=== PATIENT | female | born 1980 | race Caucasian/White ===

== ENCOUNTER 2017-01-12 10:18 | Emergency (ER) | payer BC, MEDICAID ==
[2017-01-12 10:55] VITALS: BP 126/83
[2017-01-12] MEDS ORDERED: Acetaminophen TAB* 325 MG PO ONE (11:10)
--- NOTE | 2017-01-12 12:02 | RAD ---
INDICATION: Tender distal radius post fall on outstretched hand. COMPARISON: None. TECHNIQUE: AP, lateral, and oblique views LEFT elbow. REPORT AND IMPRESSION: Displaced anterior fat pad consistent with joint effusion. Minimally impacted fracture at the radial head neck junction. No appreciable radial head articular surface discontinuity or incongruity. No additional fracture evident. Normal articular alignment. Unremarkable soft tissue contours.
--- NOTE | 2017-01-12 12:03 | RAD ---
Indication: " Tailbone" pain after a fall on the ice Comparison: None. Technique: AP and lateral views sacrum and coccyx. Report: The visualized bones of the sacrum and coccyx are well-corticated and properly aligned. The joint spaces are adequately maintained. There is no radiographically apparent acute fracture or dislocation. IMPRESSION: Normal radiograph of the sacrum and coccyx. If the patient's symptoms persist, follow-up imaging is recommended.
--- NOTE | 2017-01-12 12:03 | RAD ---
INDICATION: Left wrist injury. TECHNIQUE: 3 views of the left wrist were obtained. FINDINGS: The bones are in normal alignment. No fracture is seen. Joint spaces appear maintained. IMPRESSION: NO EVIDENCE FOR FRACTURE, IF THE PATIENT'S SYMPTOMS PERSIST, RECOMMEND FOLLOW-UP IMAGING.
--- NOTE | 2017-01-12 12:57 | UC ---
russell Frazier Timothy, scribed for Arleen Treviño DO on 01/12/17 at 1107 . Upper Extremity HPI - HPI Summary HPI Summary: Brandie Talavera is a 36 yo female presenting to [facility] with 7/10 shooting left pain in her left arm and 8/10 sharp pain in the wrist, and 6/10 dull pain in her tailbone, radiating throughout her body when she moves. There is some numbness in her left fingers tips, like hitting a funny bone. She was taking her child out of the car when she slipped and landed on her tailbone and braced herself with her left arm. Sh has a 6 month old and a 2 year old. She states she does not feel the pain as much when not moving. She denies any other Sx. Her Hx includes anxiety. She is currently breast feeding. - History of Current Complaint Stated Complaint: WRIST TAILBONE INJURY Time Seen by Provider: 01/12/17 11:02 Hx Obtained From: Patient Hx Last Menstrual Period: no LMP available ?: No Onset/Duration: Sudden Onset, Lasting Minutes, Still Present Severity Initially: Moderate Severity Currently: Moderate Pain Intensity: 8 Pain Scale Used: 0-10 Numeric Location Of Pain: Is Discrete @ - left wrist and tailbone, Radiates To - left elbow Character: Sharp, Dull Aggravating Factor(s): Movement Alleviating Factor(s): Rest Associated Signs And Symptoms: Positive: Numbness/Tingling - left finger tips. Negative: Swelling, Redness, Bruising, Fever, Weakness - Risk Factors Non-Orthopedic Risk Factor: Negative - Allergies/Home Medications Allergies/Adverse Reactions: Allergies Allergy/AdvReac Type Severity Reaction Status Date / Time No Known Allergies Allergy Verified 01/12/17 10:55 Home Medications: Home Medications NK [No Home Medications Reported] 01/12/17 [History Confirmed 01/12/17] PMH/Surg Hx/FS Hx/Imm Hx Psychological History Of: Reports: Anxiety - Surgical History Surgical History: None - Family History Known Family History: Positive: Diabetes Negative: Cardiac Disease, Hypertension - Social History Lives: With Family Alcohol Use: None Substance Use Type: None Smoking Status (MU): Never Smoked Tobacco Have You Smoked in the Last Year: No - Immunization History Most Recent Influenza Vaccination: unk Most Recent Tetanus Shot: 05/08/16 Most Recent Pneumonia Vaccination: none Review of Systems Constitutional: Negative Skin: Negative Eyes: Negative ENT: Negative Respiratory: Negative Cardiovascular: Negative Gastrointestinal: Negative Genitourinary: Negative Motor: Negative Neurovascular: Negative Musculoskeletal: Other: - pain in tailbone, left wrist, and left elbow/arm Neurological: Numbness - in left finger tips 3,4,5 Psychological: Negative All Other Systems Reviewed And Are Negative: Yes Physical Exam Triage Information Reviewed: Yes Appearance: Well-Appearing, No Pain Distress, Well-Nourished Vital Signs: Initial Vital Signs Temp 98.7 F 01/12/17 10:50 Pulse 88 01/12/17 10:50 Resp 20 01/12/17 10:50 BP 126/83 01/12/17 10:50 Pulse Ox 99 01/12/17 10:50 Vital Signs Reviewed: Yes Eyes: Positive: Conjunctiva Clear. Negative: Discharge ENT: Positive: Normal ENT inspection, Hearing grossly normal. Negative: Muffled /hoarse voice Neck: Positive: Supple, Nontender Respiratory: Positive: Lungs clear, Normal breath sounds, No respiratory distress, No accessory muscle use Cardiovascular: Positive: RRR, No Murmur Musculoskeletal: Positive: Strength Intact, ROM Intact, Other: - tenderness over sacrum and coccyx, no other midline tenderness. Tender lateral condyle and radial head and shaft. Tender distal radius in the wrist, no snuffbox tenderness. Dital neurovascularly intact. Neurological Exam: Other - A&Ox3, CN II-XII INTACT, SENSORY MOTOR INTACT, REFLEXES INTACT, NO CEREBELLAR SIGNS, FACIAL SYMMETRY, NEGATIVE RHOMBERG, NEGATIVE GAIT, NEGATIVE KERNIGS & BRUDINSKIS Neurological: Positive: Alert, Muscle Tone Normal Psychological Exam: Normal Psychological: Positive: Age Appropriate Behavior Skin Exam: Normal Diagnostics - Radiology L Elbow XR Xray Interpretation: Positive (See Comments) - REPORT AND IMPRESSION: Displaced anterior fat pad consistent with joint effusion. Minimally impacted fracture at the radial head neck junction. No appreciable radial head articular surface discontinuity or incongruity. No additional fracture evident. Normal articular alignment. Unremarkable soft tissue contours. Radiology Interpretation Completed By: Radiologist Sacrum and Coccyx Xray Interpretation: No Acute Changes - IMPRESSION: Normal radiograph of the sacrum and coccyx. Radiology Interpretation Completed By: Radiologist L wrist XR Xray Interpretation: No Acute Changes - IMPRESSION: NO EVIDENCE FOR FRACTURE, IF THE PATIENT'S SYMPTOMS PERSIST, RECOMMEND FOLLOW-UP IMAGING. Radiology Interpretation Completed By: Radiologist Re-Evaluation - Re-Evaluation First Eval Re-Evaluation Time: 12:34 Change: Unchanged Comment: Pt was informed of XR results and given instructions regarding pain management. Upper Extremity Course/Dx - Course Course Of Treatment: Brandie Talavera is a 36 yo female presenting to [facility] with left wrist and elbow pain, as well as tailbone pain S/P a fall in which she landed on her tailbone and caught herself with her left arm. After review of her imaging studies showing a minimally impacted fracture at the radial head neck junction, she will be discharged home with instructions regarding her fracture. - Differential Dx/Diagnosis Differential Diagnosis/HQI/PQRI: Contusion, Fracture (Closed), Strain, Sprain Provider Diagnoses: Minimally impacted fracture at the radial head neck junction of the left arm. coccyx injury. wrist sprain. - Physician Notification/Consults Discussed Patient Care With: Eloisa Hernandez (pharmacist) - discussed Pt condition and medications best suited for pain management given that she is breast feeding her 6 month old child. Discharge - Discharge Plan Condition: Stable Disposition: HOME Patient Education Materials: Coccyx Injury (ED), Elbow Fracture in Adults (ED) , How to Use a Sling (GEN), Wrist Sprain (ED) Referrals: [facility] [Outside] - If Needed Karon Guo MD [Medical Doctor] - (FOLLOW UP IN 2-5 DAYS OR PER ORTHO.) Additional Instructions: Please follow up with your primary care physician regarding your visit to urgent care today. Return to urgent care or the emergency department with any new or recurring symptoms. The documentation as recorded by the russell penny Timothy accurately reflects the service I personally performed and the decisions made by , Arleen Treviño DO.
== END 2017-01-12 13:03 | disposition home or self-care (01) ==
LOC: UCEAST 10:18
DX: S52.122A Displaced fracture of head of left radius, initial encounter for closed fracture (principal); S63.502A Unspecified sprain of left wrist, initial encounter; S39.92XA Unspecified injury of lower back, initial encounter; W01.0XXA Fall on same level from slipping, tripping and stumbling without subsequent striking against object, initial encounter; Y93.89 Activity, other specified; Y92.9 Unspecified place or not applicable; Z32.02 Encounter for pregnancy test, result negative
CPT/HCPCS: 72220; 81025; 99212; A9270-GY; G0463

== ENCOUNTER 2019-03-25 11:52 | Inpatient (IN) | payer OTHER ==
[2019-03-25] MEDS ORDERED: Lactated Ringers 1000 ML Bag* 1,000 ML IV ONE ×2 (12:42→19:24)
[2019-03-25] MEDS ORDERED: Buffered Lidocaine 1% SYRIN* 1 ML/SYRINGE INTRADERM ONE (12:42)
--- NOTE | 2019-03-25 12:52 | HP ---
General Information - Reason for Visit Pt is a 38yo at 38+0 wks with a di/di twin gestation, only complicated by AMA. ultrasounds and NSTs have been reassuring to date. No complaints today other than a lot of discomfort from advanced gestation. - General Information Maternal Age: 38 Grav: 4 Para: 3 SAB: 0 IEA: 0 Estimated Due Date: 04/08/19 Determined By: LMP Maternal Blood Type and Rh: O Positive - Results this Serology/RPR Result: Non-Reactive Rubella Result: Immune HBsAg Result: Negative HIV Result: Negative GBS Culture Result: Negative Past Medical History Delivery History: Hx Uncomplicated Vaginal Delivery - x3 Pertinent Past Medical History: See Records - anxiety Pertinent Past Surgical History: See Records - toe surgery - Antepartal Records Antepartal Records: Reviewed, Complicated by: - di/di twins, AMA Review of Systems Constitutional: Comfortable CV Complaint: No Respiratory: Shortness of Breath: No Gastrointestinal: No Nausea/Vomiting Genitourinary: No Dysuria, No Bleeding, No Leaking Fluid Musculoskeletal: No Complaint Neurological: No Headache, No Visual Changes Movement: Normal - x2 Exam Allergies/Adverse Reactions: Allergies No Known Allergies Allergy (Verified 03/25/19 14:26) 145/96, 136/102, 136/97 P110, T97.9 - Measurements Height: 5 ft 9 in Weight: 178 lb Body Mass Index (BMI): 26.2 Pre- Weight: 140 lb - Exam Breast: Breast Exam Deferred CVA: No CVA Tenderness Heart: Normal Rhythm/Heart Sounds HEENT: No Significant Findings Lungs: Clear Bilaterally Rectal: Rectal Exam Deferred - Abdominal Exam Abdomen Exam: Non-Tender, Fundal Height Consistent with Dates - for twins - Ultrasound/Biophysical Profile Ultrasound Status: Bedside Exam - vertex/vertex. Baby A on maternal left Targeted Exam Findings Estimated Weight: 7 lbs x2 Cervical Exam: 4cm Effacement: 80% Station: -1 Presenting Part: Vertex - but fingers palpable next to the head Membrane Status: Intact Bleeding/Discharge: None EFM Findings - External Monitor Findings Baseline Heart Rate: 130 - and 135 External Monitor Findings: Accelerations Present - x2, No Pattern of Variable or Late Decelerations, Variability Moderate, Baseline Stable Contractions: Irregular, Mild Assessment/Plan - Assessment 38 wks with uncomplicated di/di twins here for induction. Very reassuring status x2. Although Baby A's head is well-applied, fingers were palpable next to the head. Pt will try some maneuvers to try to help the baby move a little. Once hand has moved, plan AROM and then pitocin as needed. Pt has some mildly elevated BPs today, so will check labs. No signs of pre- eclampsia at this point. - Obstetrical Risk Factors Obstetrical Risk Factors: Gestational Hypertension - Plan Plan: Induction, Admit - Anticipate Vaginal Delivery - Date/Time of Admission Date of Admission: 03/25/19 Time of Admission: 13:00
[2019-03-25] MEDS ORDERED: Lactated Ringers 1000 ML Bag* 1,000 ML IV SCH ×3 (13:00→23:00)
[2019-03-25] MEDS ORDERED: Oxytocin in LR* 20 UNITS/1,000 ML BAG IVPB SCH ×2 (13:00→23:00)
[2019-03-25 13:49] LABS: ABS Basophils 0.1 10^3/ul (0-0.2); ABS Eosinophils 0.1 10^3/ul (0-0.6); ABS Lymphocytes 1.9 10^3/ul (1.0-4.8); ABS Monocytes 0.8 10^3/ul (0-0.8); ABS Neutrophils 6.2 10^3/ul (1.5-7.7); ABS Nucleated RBC 0 10^3/ul; Eosinophil % 0.6 %; Hematocrit 33 % (33-41); Lymphocyte % 20.7 %; Mean Corpuscular HGB Conc 33 g/dL (31-36); Mean Corpuscular Hemoglobin 26 pg (27-31); Mean Corpuscular Volume 80 fL (80-97); Mean Platelet Volume 9.1 fL (7.4-10.4); Nucleated Red Blood Cells % 0.1; Platelet Count 210 10^3/uL (150-450); Red Blood Count 4.17 10^6 /uL (3.70-4.87); Red Cell Distribution Width 15 % (10.5-15)
[2019-03-25 14:16] LABS: Albumin 3.5 g/dL (3.2-5.2); Albumin/Globulin Ratio 1.1 (1-3); BUN/Creatinine Ratio 12.5 (8-20); EGFR African American 97.7 (>60); EGFR Non-African American 80.7 (>60); Globulin 3.3 g/dL (2-4); Potassium 4.1 mmol/L (3.5-5.0); Total Bilirubin 0.3 mg/dL (0.2-1.0); Total Protein 6.8 g/dL (6.4-8.9); Uric Acid 6.5 mg/dL (2.3-6.6)
[2019-03-25] MEDS ORDERED: OBEPIDURAL* 250 ML EPIDURAL ONE (18:41)
[2019-03-25] MEDS ORDERED: Famotidine TAB* 20 MG PO PRN (19:24)
[2019-03-25] MEDS ORDERED: Phenylephrine 40 MCG/ML SYRINGE IV PUSH PRN (19:24)
[2019-03-25] MEDS ORDERED: Sodium Citrate/Citric Acid* 15 ML UDC PO PRN (19:24)
[2019-03-25] MEDS ORDERED: OBEPIDURAL* 250 ML EPIDURAL SCH (20:00)
[2019-03-25] MEDS ORDERED: Witch Hazel PAD* JAR TOPICAL PRN (22:29)
[2019-03-25] MEDS ORDERED: Dibucaine 1% 28.35 GM TUBE PR PRN (22:29)
--- NOTE | 2019-03-25 22:36 | PROCNOTE ---
[facility] OB: Delivery Note - Delivery A Date of : 03/25/19 Time of : 21:54 [place] Sex: Female Weight at : 6 lb 7 oz Score 1 Minute: 8 Score 5 Minutes: 9 Gestational Age in Weeks and Days at Delivery: 38 Weeks and 0 Days Delivery Method: Spontaneous Vaginal Labor: Induced Amniotic Fluid: Clear Estimated Blood Loss: 200 Anesthesia/Analgesia: CEI for Labor Delivered By: Kimani Balderas B Date of : 03/25/19 Time of : 22:04 Sex: Male [place] Weight at : 7 lb Score 1 Minute: 9 Score 5 Minutes: 9 Gestational Age in Weeks and Days at Delivery: 38 Weeks and 0 Days Delivery Method: Spontaneous Vaginal Labor: Induced Anesthesia/Analgesia: CEI for Labor Delivered By: Kimani Balderas - Nursery Level of Nursery: Regular/Bedside - Perineum Perineal Injury: None/Intact Perineal Repair: None - Additional Delivery Notes Additional Delivery Notes: Pt presented for induction at 38 wks with di/di twins, otherwise uncomplicated . AROM performed. After a couple hrs, pitocin was started. At only 2mU, she was actively car within an hour. After an additional couple hrs, she received an epidural which worked well. She progressed quickly to C/C/0 and we moved to the OR. Pt pushed twice to deliver the first infant OA without difficulty. Infant vigorous, placed on her abdomen. Cord doubly clamped and cut. U/S confirmed vtx presentation of baby B. Once head came down a little, AROM performed with copious clear fluid. U/S noted FHR in 60s. She pushed with two contractions to deliver the head. Compound arm present during delivery. Shoulders and body followed easily. cried quickly. Cord doubly clamped and cut. IV pitocin started. Cord blood collected x2. Both placentas delivered spontaneously and together. Noted to be intact. Fundus very firm, minimal bleeding. No lacerations present.
[2019-03-25] MEDS: Ibuprofen TAB* 600 MG PO PRN (23:29)
[2019-03-26] MEDS: Ibuprofen TAB* 600 MG PO PRN ×3 (06:15→20:04)
[2019-03-26 07:03] LABS: ABS Basophils 0.1 10^3/ul (0-0.2); ABS Eosinophils 0.1 10^3/ul (0-0.6); ABS Lymphocytes 2.4 10^3/ul (1.0-4.8); ABS Neutrophils 8.4 10^3/ul (1.5-7.7); ABS Nucleated RBC 0 10^3/ul; Eosinophil % 0.5 %; Hematocrit 29 % (33-41); Hemoglobin 9.6 g/dL (12.0-16.0); Mean Corpuscular HGB Conc 33 g/dL (31-36); Mean Corpuscular Hemoglobin 27 pg (27-31); Mean Corpuscular Volume 80 fL (80-97); Mean Platelet Volume 8.6 fL (7.4-10.4); Nucleated Red Blood Cells % 0.1; Platelet Count 163 10^3/uL (150-450); Red Blood Count 3.62 10^6 /uL (3.70-4.87); Red Cell Distribution Width 15 % (10.5-15)
[2019-03-26] MEDS ORDERED: Simethicone TAB* 80 MG TAB.CHEW PO SCH (08:30)
[2019-03-26] MEDS: Docusate CAP* 100 MG PO SCH ×3 (08:49→20:04)
[2019-03-26] MEDS: Ferrous Gluconate TAB* 324 MG TAB PO SCH ×2 (11:10→20:16)
[2019-03-26] MEDS: Acetaminophen TAB* 325 MG PO PRN ×2 (11:45→20:04)
[2019-03-27] MEDS: Acetaminophen TAB* 325 MG PO PRN ×3 (00:08→09:02)
[2019-03-27] MEDS: Ibuprofen TAB* 600 MG PO PRN ×2 (04:01→09:01)
[2019-03-27 08:37] VITALS: BP 129/81
[2019-03-27] MEDS ORDERED: Prenatal Vitamin TAB PO SCH (09:00)
[2019-03-27] MEDS ORDERED: Lactobacillus Acidophilus* 1 TAB PO SCH (09:00)
[2019-03-27] MEDS: Docusate CAP* 100 MG PO SCH (09:02)
== END 2019-03-27 13:18 | disposition home or self-care (01) | DRG 807 ==
LOC: MCHOBOUT 11:52 → MCHOB 12:44
PROVIDERS: ADMIT Obstetrics & Gynecology; ATTEND Obstetrics & Gynecology
PROC: 10E0XZZ Delivery of Products of Conception, External Approach (ICD-10-PCS; principal; 2019-03-25)
PROC: 3E033VJ Introduction of Other Hormone into Peripheral Vein, Percutaneous Approach (ICD-10-PCS; 2019-03-25)
PROC: 10907ZC Drainage of Amniotic Fluid, Therapeutic from Products of Conception, Via Natural or Artificial Opening (ICD-10-PCS; 2019-03-25)
DX: O13.4 Gestational [pregnancy-induced] hypertension without significant proteinuria, complicating childbirth (principal); Z37.2 Twins, both liveborn; O99.344 Other mental disorders complicating childbirth; F41.9 Anxiety disorder, unspecified; O90.81 Anemia of the puerperium; D64.9 Anemia, unspecified; Z3A.38 38 weeks gestation of pregnancy
CPT/HCPCS: 36415; 80053; 84550; 85025; 86850; 86900; 86901; A9270-GY

== ENCOUNTER 2019-03-30 19:12 | Observation (INO) | payer OTHER ==
--- NOTE | 2019-03-30 19:37 | ED ---
Headache - HPI Summary HPI Summary: Pt is a 38 y/o female who presents to the ED c/o headache. She delivered twins vaginally on 03/25/19 without complications. Pt was given an epidural. 3 days ago she began to have a headache, located in her posterior head and neck. Pain is rated a 9/10 in severity, and is made worse with lying flat. She reports intermittent blurry vision and black spots in her vision. Pt also notes an episode of feeling cold and shaking while breast feeding. She denies any LE edema. She has been taking Tylenol and Motrin for her symptoms. BP while in triage: 165/101. She denies any hx of HTN. - History Of Current Complaint Chief Complaint: EDHeadache Stated Complaint: TEST BLOOD PRESSURE PER PT Hx Obtained From: Patient Hx Last Menstrual Period: no LMP available Onset/Duration: Gradual Onset, Started days ago - 3, Still Present Currently Pain Is: Severe - 9/10 Timing: Constant Location of Headache: Other: - posterior head and neck Aggravating Factor: Position Change - lying flat Associated Signs And Symptoms: Visual Changes - blurry vision - Allergies/Home Medications Allergies/Adverse Reactions: Allergies Allergy/AdvReac Type Severity Reaction Status Date / Time No Known Allergies Allergy Verified 03/25/19 14:26 PMH/Surg Hx/FS Hx/Imm Hx Cardiovascular History: Denies: Hx Hypertension Musculoskeletal History: Reports: Other Musculoskeletal History - wrist sprain Psychiatric History: Reports: Hx Anxiety Infectious Disease History: No Infectious Disease History: Denies: Traveled Outside the [place] in Last 30 Days - Family History Known Family History: Positive: Diabetes Negative: Cardiac Disease, Hypertension - Social History Alcohol Use: None Hx Substance Use: No Substance Use Type: Reports: None Hx Tobacco Use: No Smoking Status (MU): Never Smoked Tobacco Have You Smoked in the Last Year: No Review of Systems Positive: Other - cold and shaky Positive: Blurred Vision, Other - black spots in vision Negative: Edema - LE Positive: Headache - posterior head and neck All Other Systems Reviewed And Are Negative: Yes Physical Exam - Summary Physical Exam Summary: Appearance: well appearing, mild pain distress, tearful Skin: warm, dry, reflects adequate perfusion Head/face: normal Eyes: EOMI, CARLOS ENT: mucous membranes moist Neck: supple, moderate tenderness of musculature Respiratory: CTA, breath sounds present Cardiovascular: tachycardic but regular rhythm, pulses symmetrical Abdomen: non-tender, soft, uterus firm Bowel Sounds: present Musculoskeletal: normal, strength/ROM intact Neuro: normal, sensory motor intact, A&Ox3 Triage Information Reviewed: Yes Vital Signs On Initial Exam: Initial Vitals Temp Pulse Resp BP Pulse Ox 98.8 F 110 20 165/101 97 03/30/19 19:29 03/30/19 19:29 03/30/19 19:29 03/30/19 19:29 03/30/19 19:29 Vital Signs Reviewed: Yes Procedures - Procedure Summary Procedure Summary: Trigger Point Injection: done for pain, patient laid supine, cervical musculature cleaned with alcohol, musculature was injected with a total of 10 cc 0.25% Bupivacaine with Epinephrine in divided aliquots which was then massaged through the tissue, pain relief excellent, ROM restored, procedure tolerated well without complications. Diagnostics - Vital Signs Vital Signs Temp Pulse Resp BP Pulse Ox 03/30/19 19:29 98.8 F 110 20 165/101 97 - Laboratory Result Diagrams: 03/30/19 19:13 03/30/19 19:13 Lab Statement: Any lab studies that have been ordered have been reviewed, and results considered in the medical decision making process. Re-Evaluation - Re-Evaluation First Eval Re-Evaluation Time: 19:48 Change: Unchanged Comment: BP is now 175/105. Second Eval Re-Evaluation Time: 20:38 Change: Improved Comment: Pt feels much better after the injections. Headache Course/Dx - Course Course Of Treatment: Patient is immediately with blood pressures approaching 180 systolic and 120 diastolic. She has posterior headache and neck pain. There is muscular tenderness there and the neck is well. She was started on labetalol and IV magnesium. A trigger point injection was performed of the neck which greatly reduced her discomfort. The divisional storekeeper [employer] was paged and accepted the patient for admission to labor and delivery for management of preeclampsia. Thus far her LFTs, platelets are normal. Pending urinalysis. - Diagnoses Differential Diagnosis/HQI/PQRI: Meningitis, Migraine, Other - Eclampsia, preeclampsia Provider Diagnoses: Pre-eclampsia, , Headache, Neck pain - Physician Notifications Discussed Care Of Patient With: Tena Mendes Time Discussed With Above Provider: 19:43 Instructed by Provider To: Other - She will come to the ED. At 20:44 she accepts pt for admission and wants the pt sent down to OB. - Critical Care Time Critical Care Time: 30-74 min - CCT is EXCLUSIVE of separately billable procedures. Discharge - Sign-Out/Discharge Documenting (check all that apply): Patient Departure - Admit Patient Received Moderate/Deep Sedation with Procedure: No - Discharge Plan Condition: Guarded Disposition: ADMITTED TO [facility] - Billing Disposition and Condition Condition: GUARDED Disposition: Admitted to [facility] - Attestation Statements Document Initiated by Scribe: Yes Documenting Scribe: Rossana Engle Provider For Whom Scribe is Documenting (Include Credential): Wilfredo Vanegas MD Scribe Attestation: Rossana Frazier, scribed for Wilfredo Vanegas MD on 03/31/19 at 0621. Scribe Documentation Reviewed: Yes Provider Attestation: The documentation as recorded by the Rossana penny accurately reflects the service I personally performed and the decisions made by , Wilfredo Vanegas MD Status of Scribe Document: Viewed
[2019-03-30] MEDS ORDERED: Bupivacaine 0.25% SDV* 30 ML INJ ONE (19:41)
[2019-03-30] MEDS ORDERED: Labetalol IV* 5 MG/ML 20 ML VIAL IV PUSH ONE ×2 (19:41→21:54)
[2019-03-30 20:03] LABS: ABS Basophils 0.1 10^3/ul (0-0.2); ABS Eosinophils 0.2 10^3/ul (0-0.6); ABS Lymphocytes 1.8 10^3/ul (1.0-4.8); ABS Monocytes 0.7 10^3/ul (0-0.8); ABS Neutrophils 7.1 10^3/ul (1.5-7.7); ABS Nucleated RBC 0 10^3/ul; Eosinophil % 2.4 %; Hematocrit 35 % (35-47); Hemoglobin 11.6 g/dL (12.0-16.0); Lymphocyte % 18.3 %; Mean Corpuscular HGB Conc 33 g/dL (31-36); Mean Corpuscular Hemoglobin 27 pg (27-31); Mean Corpuscular Volume 80 fL (80-97); Mean Platelet Volume 7.2 fL (7.4-10.4); Nucleated Red Blood Cells % 0; Platelet Count 274 10^3/uL (150-450); Red Blood Count 4.38 10^6 /uL (3.70-4.87); Red Cell Distribution Width 16 % (10.5-15); White Blood Count 9.9 10^3/uL (3.5-10.8)
[2019-03-30] MEDS ORDERED: Magnesium Sulfate 2 GM IV* 2 GM/50 ML BAG IVPB ONE (20:09)
[2019-03-30 20:19] LABS: Albumin 3.5 g/dL (3.2-5.2); Albumin/Globulin Ratio 1.1 (1-3); BUN/Creatinine Ratio 14.3 (8-20); Calcium 8.4 mg/dL (8.6-10.3); EGFR African American 102.1 (>60); EGFR Non-African American 84.4 (>60); Globulin 3.2 g/dL (2-4); Total Bilirubin 0.3 mg/dL (0.2-1.0); Total Protein 6.7 g/dL (6.4-8.9)
[2019-03-30 20:53] LABS: Urine Appearance Cloudy; Urine Bacteria 1+ (Absent); Urine Bilirubin Negative (Negative); Urine Blood 2+ (Negative); Urine Color Yellow; Urine Glucose Negative (Negative); Urine Ketones Negative (Negative); Urine Nitrite Negative (Negative); Urine Protein Negative (Negative); Urine Red Blood Cell Trace(0-2/hpf) (Absent); Urine Specific Gravity 1.009 (1.010-1.030); Urine Squamous Epithelial Cell Present (Absent); Urine Urobilinogen Negative (Negative); Urine White Blood Cell Trace(0-5/hpf) (Absent)
[2019-03-30] MEDS: Lactated Ringers 1000 ML Bag* 1,000 ML IV SCH (21:50)
[2019-03-30] MEDS ORDERED: Magnesium Sulfate OB PREMIX* 40 GM/1,000 ML BAG IVPB SCH (22:00)
--- NOTE | 2019-03-30 22:06 | PN ---
L&D Outpatient: Visit - Reproductive Information : 4 Para: 5 - Reason for Visit Visit Reason: Pt is 5 days pp s/p NVD of twins. BPs were mildly elevated during delivery and post- but never enough to start medication. No elevated BPs during . 2 days pp pt developed a headache and initially though it was a spinal headache. It is worse after lying down for a while or when she wakes up and actually improves with more movement. It has waxed and waned over the past 5 days but got a bit worse tonight. She has had intermittent blurry vision only when the pain is really bad. She saw the chiropractor 2 days ago who thought it was at least partially tension related. She is breast feeding both babies and has 3 other young children at home. The babies are feeding well. She has help from her , mom and [id number]. She said she has slight abdominal discomfort today but she was also doing a little more today and felt well enough to go pick her kids up at school. No swelling at all. - Antepartal Records Antepartal Record: Reviewed, Complicated by: - 5 days pp from twin NVD , induction@38wks - Patient History Patient History Significant: Yes Patient History Significant For: anxiety Review of Systems Constitutional: Comfortable - but unable to turn head or move it much without discomfort CV Complaint: No Respiratory: Shortness of Breath: No Gastrointestinal: No Nausea/Vomiting Genitourinary: Bleeding - minimal Musculoskeletal: No Complaint Neurological: Headache, Blurred [place] L&D Outpatient: Exam Vitals - Most Recent: Vital Signs: Temp Pulse Resp BP Pulse Ox 98.2 F 107 20 144/97 97 03/30/19 21:06 03/30/19 21:06 03/30/19 21:06 03/30/19 21:06 03/30/19 21:06 Lab Values - Entire Visit: Laboratory Tests 03/30/19 03/30/19 03/30/19 19:13 19:13 19:13 WBC 9.9 RBC 4.38 Hgb 11.6 L Hct 35 MCV 80 MCH 27 MCHC 33 RDW 16 H Plt Count 274 MPV 7.2 L Neut % (Auto) 71.2 Lymph % (Auto) 18.3 [place] % (Auto) 7.3 Eos % (Auto) 2.4 Baso % (Auto) 0.8 Absolute Neuts (auto) 7.1 Absolute Lymphs (auto) 1.8 Absolute Monos (auto) 0.7 Absolute Eos (auto) 0.2 Absolute Basos (auto) 0.1 Absolute Nucleated RBC 0 Nucleated RBC % 0 Fibrinogen 427.6 H Sodium 137 Potassium 4.0 Chloride 107 Carbon Dioxide 22 Anion Gap 8 BUN 11 Creatinine 0.77 Est GFR ( Amer) 102.1 Est GFR (Non-Af Amer) 84.4 BUN/Creatinine Ratio 14.3 Glucose 105 H Calcium 8.4 L Total Bilirubin 0.30 AST 37 ALT 43 Alkaline Phosphatase 140 H Total Protein 6.7 Albumin 3.5 Globulin 3.2 Albumin/Globulin Ratio 1.1 Urine Color Urine Appearance Urine pH Ur Specific [place] Urine Protein Urine Ketones Urine Blood Urine Nitrate Urine Bilirubin Urine Urobilinogen Ur Leukocyte Esterase Urine WBC (Auto) Urine RBC (Auto) Ur Squamous Epith Cells Urine Bacteria Urine Glucose 03/30/19 20:23 WBC RBC Hgb Hct MCV MCH MCHC RDW Plt Count MPV Neut % (Auto) Lymph % (Auto) [place] % (Auto) Eos % (Auto) Baso % (Auto) Absolute Neuts (auto) Absolute Lymphs (auto) Absolute Monos (auto) Absolute Eos (auto) Absolute Basos (auto) Absolute Nucleated RBC Nucleated RBC % Fibrinogen Sodium Potassium Chloride Carbon Dioxide Anion Gap BUN Creatinine Est GFR ( Amer) Est GFR (Non-Af Amer) BUN/Creatinine Ratio Glucose Calcium Total Bilirubin AST ALT Alkaline Phosphatase Total Protein Albumin Globulin Albumin/Globulin Ratio Urine Color Yellow Urine Appearance Cloudy Urine pH 6.0 Ur Specific [place] 1.009 L Urine Protein Negative Urine Ketones Negative Urine Blood 2+ A Urine Nitrate Negative Urine Bilirubin Negative Urine Urobilinogen Negative Ur Leukocyte Esterase 1+ A Urine WBC (Auto) Trace(0-5/hpf) Urine RBC (Auto) Trace(0-2/hpf) Ur Squamous Epith Cells Present A Urine Bacteria 1+ A Urine Glucose Negative - Abdominal Exam Abdomen Exam: Non-Tender - fundus firm down from umbilicus, no epigastric/RUQ tenderness - Exam Findings Extremities: no welling. trace reflexes (s/p 2g magnesium). L&D Outpatient: Asses/Plan Assessment: Assessment: 5days pp with suspected PEC and possible tension headache. Labs wnl. BPs responding to Labetalol and magnesium Plan: Continue mag @ 1gm/hr for up to 24hrs. Measure Is and Os. Mag checks. Start labetalol PO. Give Labetalol IV prn. Tylenol prn headache. Heat/cold prn. Consider massage tomorrow. May be able to D/C tomorrow am if BP stablize or may need to stay 1 more night. - Discharge Diagnosis Discharge Diagnosis: PreEclampsia Plan: Other - admit for observation
[2019-03-30] MEDS: Acetaminophen TAB* 325 MG PO PRN (22:10)
[2019-03-30] MEDS: Labetalol TAB* 200 MG PO SCH (23:06)
[2019-03-31] MEDS ORDERED: traMADol TAB* 50 MG PO ONE (00:01)
[2019-03-31] MEDS: Acetaminophen TAB* 325 MG PO PRN ×3 (03:11→12:00)
[2019-03-31] MEDS: Lactated Ringers 1000 ML Bag* 1,000 ML IV SCH ×2 (07:56→18:40)
[2019-03-31] MEDS: Labetalol TAB* 200 MG PO SCH ×2 (09:33→20:59)
[2019-03-31] MEDS ORDERED: NIFEdipine CAP* 10 MG ONE (10:45)
[2019-03-31] MEDS ORDERED: NIFEdipine CAP* 10 MG PO ONE ×2 (11:00→17:18)
--- NOTE | 2019-03-31 12:12 | PN ---
Progress Note - Progress Note Date of Service: 03/31/19 SOAP: Subjective: Pt is PPD#6 s/p with twins. Pt had new onset HTN on the day of induction, and this continued , although she never had persistently severe range BPs. Pt D/C'd on PPD#2 with mild HTN. She reports on Thursday night she developed a fairly severe headache and this developed into severe pain at the base of her skull extending to both sides of her neck. She is now unable to really turn her head. Also with intermittent blurry vision. Pt admits sleep has been fairly poor, but she does get 2-hr naps each afternoon to help with the nights. Objective: Vital Signs - 8 hr 03/31/19 03/31/19 03/31/19 05:39 06:05 07:40 Temperature 97.8 F Pulse Rate 96 Respiratory 18 18 Rate Blood Pressure 152/91 159/103 (mmHg) O2 Sat by Pulse Oximetry 03/31/19 03/31/19 03/31/19 09:30 10:00 10:20 Temperature 98.0 F Pulse Rate 100 Respiratory 18 Rate Blood Pressure 164/103 160/103 172/108 (mmHg) O2 Sat by Pulse 98 Oximetry Gen: NAD but clearly uncomfortable with headache and neck pain, but speaks clearly. Pleasant, good historian Neck: tender at upper neck midline and bilateral neck Labs reviewed from last night: All unremarkable, except LFTs somewhat higher than at previous admission (but still normal range) Assessment: PPD#6 with severe range HTN, treated twice with IV labetalol last night and PO labetalol. Has been on MgSO4 since last night. Given a dose of PO nifedipine 10mg this AM, continuing to watch closely. Most recent BP 140s/90s. Pre-eclampsia is the most likely cause for her issues considering her recent twin , but I still have some concern considering her severe headache, neck pain and visual issues. Plan: Continue to monitor BP closely, treating as needed. I contacted Dr. Espitia from neurology who will come to give a consult. Likely plan MRI.
[2019-03-31] MEDS ORDERED: Cyclobenzaprine TAB* 10 MG PO PRN (16:18)
--- NOTE | 2019-03-31 16:26 | PN ---
Progress Note - Progress Note Date of Service: 03/31/19 Note: Pt seen by Dr. Espitia, and I discussed with him at length. He is currently not concerned about any neurologic process other than headache and apparent musculoskeletal pain in the neck and upper shoulders. Will try prednisone 20mg daily x4 days, then taper to 10mg daily for 4 days to try to improve headache. Cyclobenzaprine rx available prn for muscle spasm pain. No plan for MRI at this point. Reviewed with pt today. BP has been varying today from 130s/80s to 160s/100s. Will continue to give nifedipine prn severe HTN. Also continue labetalol PO. Plan to discontinue Mg after 24 hrs.
[2019-03-31] MEDS: Ibuprofen TAB* 600 MG PO PRN (16:50)
[2019-03-31] MEDS: predniSONE TAB* 20 MG PO SCH (17:36)
--- NOTE | 2019-03-31 18:10 | CONS ---
NEUROLOGY CONSULTATION NOTE: DATE OF CONSULT: 03/31/19 CONSULTING PROVIDER: Dr. Balderas. REASON FOR CONSULT: Headache and neck stiffness. CHIEF COMPLAINT: Headache and neck stiffness. HISTORY OF PRESENT ILLNESS: Ms. Brandie Talavera is a 38-year-old female who is 6 days , who gave to twins on 03/25/19. The patient states that she was able to go home Thursday. Thursday night, she developed gradual -onset headache. She has been taking NSAIDs and acetaminophen since last Thursday evening. She also has associated symptoms of stiff neck. She typically has neck stiffness prior to her delivery that usually resolves within 1 to 2 days. She feels extremely sore. She is nursing and both children. The headache is worse when she lies down. She apparently had an episode yesterday where she started crying and lost vision in both eyes for about 20 minutes. She was in excruciating pain at that time. I reviewed her blood pressure and her systolic blood pressure was ranging in the 160s to 170s. The patient has been hospitalized for treatment of preeclampsia. She has been receiving magnesium sulfate and antihypertensive agents. Currently, her blood pressure is in the 120s and 130s and she does not have any complaints of visual disturbance. Furthermore details regarding the headaches and neck stiffness: The patient stated that the headache is mostly localized at the bitemporal region and left occipital area. The headache currently is 5/10 in severity. The headache does not radiate, but does seem to get worse when she lies flat. She feels a pressure-like sensation. She feels that the pain is constant and sometimes is associated with nausea and vomiting. She seems to be better today than yesterday. In regards to the neck stiffness, the patient has trouble moving her neck from right to left. With minimal neck movement, she has significant amount of pain. The left side is worse than the right. Again, lying flat worsens the neck pain. She denied any current visual disturbance, double vision , swallowing impairment, speech problems, or focal weakness or paresthesias. She denied any impairment in her bowel or bladder functions. She is still nursing her children. The patient had what seems to be bupivacaine trigger point injections by Dr. Vanegas in the ER yesterday with no improvement. She also had a dose of tramadol overnight with no improvement in the pain. PAST MEDICAL HISTORY: No significant past medical history. PAST SURGICAL HISTORY: Toe surgery. HOME MEDICATIONS: 1. vitamins. 2. Ibuprofen. 3. Ferrous gluconate 324 mg p.o. daily. 4. Acetaminophen 650 mg p.o. q.4 hours. ALLERGIES: No known drug allergies. FAMILY HISTORY: There is no family history of stroke or seizures. SOCIAL HISTORY: The patient is a psychologist. She denies any tobacco or alcohol use. She lives with her . She has 5 children total. PHYSICAL EXAM: Vitals: Current temperature of 98.0, pulse rate of 100, respiratory rate of 18, oxygen saturation 98%, blood pressure 132/88. The patient is resting in bed in a primary gaze forward with limited neck movements due to neck pain. General: Well-nourished, well-developed female, in no acute distress. Head: There is significant tenderness to deep palpation around the left cervical paraspinal muscle, left occipital notch region, and left trapezius muscle. There is mild tenderness to palpation in the right cervical paraspinal muscle and trapezius muscle. Eyes: Conjunctivae/corneas are clear. Undilated direct funduscopic examination revealed no evidence of disc margin. Neck: Hypertrophy of the trapezius muscle. No carotid bruits. Lungs are clear to auscultation bilaterally. Cardiovascular: Regular rate and rhythm with normal S1, S2. Extremities: Normal range of motion with no cyanosis. Skin : No skin lesions or lacerations. Psych: Affect is broad and normal mood. Neurological Examination: Mental Status: Awake, alert, and oriented to person, place, time, and general circumstances. Speech and language including expression, naming, repetition, and comprehension were assessed and found to be normal. Cranial Nerves: Normal confrontation testing bilaterally. Pupils are mid range and reactive to light. Normal consensual response. Extraocular muscles are intact. No ptosis. No conjugate or asymmetric nystagmus. Sensation is intact on the forehead, cheeks, and jaw region bilaterally. No facial droop. She is able to hear throughout the history process. Symmetrical palatal elevation. Normal strength against shoulder shrug. Tongue is symmetrical and midline with no atrophy or fasciculation. Motor Examination: No abnormal movements or pronator drift. Normal bulk and tone throughout. 5/5 strength in the upper and lower extremities bilaterally. Reflexes: Right/left, brachioradialis 2/2, biceps 2/2, triceps 2/2, patella 2/2, ankle 2/2, plantar flexor/flexor. Sensation is intact to light touch, pinprick, and temperature sensation throughout. Normal vibration and proprioception at the great toes. Coordination: Normal [id number] and rapid alternating movements. Gait and station: Narrow based, normal stance and gait. No ataxia. ASSESSMENT AND RECOMMENDATIONS: Ms. Brandie Talavera is a fairly healthy female who is day 6, after delivering twins, who developed preeclampsia and has nonspecific headaches and cervicalgia. I suspect the patient has headache that is multifactorial and mostly related to tension-like headaches, hypertension-related headaches, and cervicalgia. A component on her examination confirming a musculoskeletal strain is the reproducible pain to palpation around the bitemporal as well as the left cervical paraspinal region. I do not suspect she has central venous thrombosis given the unremarkable undilated funduscopic examination that did not show any evidence of elevated intracranial pressure. I don't suspect she has vertebral artery dissection as she has no neurological deficit on examination. I do not suspect she has posterior reversible encephalopathy syndrome as posterior reversible encephalopathy syndrome typically does not resolve this quickly. I do not suspect she has post-epidural headache given that the symptoms are worse when she lies flat. It's unlikely that she has a cervical epidural leak given that again she has no focal neurological deficits, no myelopathy on examination , and the symptoms are usually worse when she lies flat. Certainly, she can still have a post-dural headache in spite of the lack of the positional component, but other causes should be first evaluated and treated before considering a blood patch. We discussed further therapeutic interventions. Recommended the following treatments: We can use medications such as candesartan or propranolol to help with the headaches as well as the blood pressure. Prednisone can help with the headaches, but not help with the overall muscle tension. Prednisone is safe during ; however, we need to be very careful with the use of prednisone in the setting of preeclampsia as it may worsen her hypertension. It 's less likely to occur with a low dose of 20 mg a day for a few days. Muscle relaxers such as Flexeril, methocarbamol, tizanidine, or baclofen have limited data on the excretion into the human milk; however, again we should be very cautious using these medications especially given that the patient is in favor to continue . I encouraged the patient to use warm compresses. She has noticed slight relief with warm compress. I encouraged her to continue the acetaminophen and NSAID, but not to take more than 2000 mg of Tylenol a day or no more than 10 tablets of NSAIDs a week. She may develop or may have analgesic-rebound headaches if she takes any higher dosages of these over-the- counter medications. If she continues to have the pain after 1-2 weeks, consider imaging the brain with MRI, MRV of the head, and MRI of the cervical spine without contrast to evaluate for any secondary causes of headaches. However, it seems like with the lower blood pressure, her headaches are less intense and therefore I recommend aggressive management of her preeclampsia. TIME SPENT: I spent a total of 75 minutes of which more than 50% was spent obtaining history, examining the patient, education, and counseling, and discussing the treatment options as mentioned above. The patient was provided reassurance. I will continue to follow if she stays in the inpatient unit. I discussed these recommendations with Dr. Balderas. [id number]/[facility] #: [id number] AMY
[2019-04-01] MEDS: Ibuprofen TAB* 600 MG PO PRN (04:00)
[2019-04-01] MEDS: NIFEdipine ER TAB* 30 MG PO SCH ×2 (08:35→09:00)
[2019-04-01] MEDS: predniSONE TAB* 20 MG PO SCH (09:00)
[2019-04-01] MEDS: Labetalol TAB* 200 MG PO SCH (09:10)
[2019-04-01 12:05] VITALS: BP 151/97
--- NOTE | 2019-04-01 12:10 | PN ---
Subjective Date of Service: 04/01/19 Length of Stay: 2 Days Neurology is following for headache and neck pain. Interval History: She denied any headache this morning. She found immediate relief with the prednisone yesterday. She had a mild headache earlier today around 4 a.m. that resolved after taking Motrin. She is finding her self moving the neck more today and she can look towards the right and left. She was unable to do that yesterday. She still has pain in the left cervical paraspinal and splenius muscle. She denied any visual disturbance, speech abnormality, or focal weakness/paresthesia. She was very content to see her two year old child today who came to visit. She still has slight elevation in her BP. Magnesium infusion has been discontinued. She was switched to Procardia and continues to receive labetalol. Review of Systems: Denied CP, SOB, or palpitations. Objective Active Medications: Acetaminophen (Tylenol Tab*) 650 mg PO Q4H PRN PRN Reason: HEADACHE Last Admin: 03/31/19 12:00 Dose: 650 mg Cyclobenzaprine HCl (Flexeril Tab*) 10 mg PO BID PRN PRN Reason: muscle pain Lactated Ringer's (Lactated Ringers 1000 Ml Bag*) 1,000 mls @ 125 mls/hr IV PER RATE [facility] Last Admin: 03/31/19 18:40 Dose: 125 mls/hr Ibuprofen (Motrin Tab*) 600 mg PO Q6H PRN PRN Reason: PAIN Last Admin: 04/01/19 04:00 Dose: 600 mg Labetalol HCl (Trandate Tab*) 200 mg PO BID [facility] Last Admin: 04/01/19 09:10 Dose: 200 mg Nifedipine (Procardia Xl Tab*) 30 mg PO DAILY [facility] Last Admin: 04/01/19 09:00 Dose: Not Given Prednisone (Deltasone Tab*) 20 mg PO 1500 [facility] Vital Signs 04/01/19 04/01/19 04/01/19 03:15 04:00 05:29 Temperature Pulse Rate 82 82 Respiratory Rate Blood Pressure 155/79 153/85 146/96 (mmHg) O2 Sat by Pulse Oximetry 04/01/19 04/01/19 08:00 10:00 Temperature 98.7 F Pulse Rate 85 82 Respiratory 17 16 Rate Blood Pressure 158/97 161/107 (mmHg) O2 Sat by Pulse 98 Oximetry Intake and Output Last 24 Hours 03/30/19 03/31/19 04/01/19 04/02/19 06:59 06:59 06:59 06:59 Intake Total 2180 3824 Output Total 2650 5700 Balance -470 -1876 Weight 156 lb 11.2 oz Intake: IV Fluids 900 2000 LR 800 IVPB 1457 LR 1457 Medicated IV 200 367 GEN - Magnesium 200 367 Oral 1080 Output: Urine 2650 5700 Oxygen Devices in Use Now: None Neurology Exam: General: Well nourished, well developed, and in no acute distress HEENT: Normocephelic/atraumatic, sclera anicteric, mucous membranes moist. Reproducible pain and tenderness to the left cervical paraspinal and splenius muscle. Neck: Supple Chest: Clear to auscultation bilaterally Cardiovascular: Regular rate and rhythm without murmurs, rubs, gallops Extremities: No clubbing, cyanosis, or edema Neurological Findings: Awake, alert, and oriented to person, place, and time. Speech: fluent without dysarthria, repetition intact Cranial Nerve: PERRL, EOM intact, VFF, no nystagmus, face symmetric bilaterally , facial sensation intact, hearing intact to finger rub bilaterally, palate elevates symmetrically, tongue midline, SCM and Trapezius s/s. Motor: s/s throughout, proximal and distal extremities x4 tone/bulk normal Sensation: intact to LT/PP bilaterally upper and lower extremities Deep Tendon Reflex: 2+ symmetric in the upper/lower extremities, Babinski - down going Finger to nose, rapid alternating movements intact without tremor, no dysdiadochokinesia Gait: intact with good arm swing and stride Result Diagrams: 03/30/19 19:13 03/30/19 19:13 Microbiology and Other Data: Microbiology 03/30/19 20:23 Urine Culture - Final Urine Assessment/Plan 1. headaches- Multifactorial and is mostly related to cervicalgia, tension headache, and symptomatic pre-eclampsia. She seemed to have responded well to prednisone. Please monitor for the side effects of steroids which include elevation in blood pressure. However, her pain, in combination with the pre-eclampsia, can also contribute to the elevated BP. She has no focal neurological deficits on examination. There is no evidence of cerebral venous thrombosis, PRES, or vertebral artery dissection. No need for intracranial imaging. We can continue the prednisone at a dose of 10-20 mg a day 1-2 times a day for a total of 7 days. She can also use the Flexeril 5-10 mg a day as needed. I will be more than happy to see her in our clinic at the [facility] [place] [facility] [place] for follow-up in 10 days. Please contact us for any questions or concerns. I will sign off.
--- NOTE | 2019-04-01 12:45 | PN ---
Progress Note - Progress Note Date of Service: 04/01/19 Note: pt seen headache gone post prednisone. breast feeding well. She would like to go home. Will get a home bP monitor to facilitate. bp 150's /90's received labetolol 200mg bid and nifedipine xl 30 mg today prednisone 20 mg qd x 4 days and the 10 mg x 4 days as discussed with dr Espitia post preeclampsia . controlled with meds home with warnings to call for headache or elevated bp ( check tid) follow up on Thursday in office
[2019-04-01] MEDS ORDERED: predniSONE TAB* 20 MG PO SCH (15:00)
== END 2019-04-01 14:55 | disposition home or self-care (01) ==
LOC: ED 19:12 → MCHOB 20:56
PROVIDERS: ADMIT Obstetrics & Gynecology; ATTEND Obstetrics & Gynecology
DX: O89.4 Spinal and epidural anesthesia-induced headache during the puerperium (principal); O14.95 Unspecified pre-eclampsia, complicating the puerperium; R51 Headache; H53.8 Other visual disturbances; M54.2 Cervicalgia
CPT/HCPCS: 36415; 80053; 81003; 81015; 85025; 85384; 87086; 96374; 96375; 99284; A9270-GY; G0378; J3475; J3490; J7512